=== PATIENT | female | born 1955 | race Caucasian/White ===

== ENCOUNTER 2024-05-15 04:29 | Emergency (ER) | payer MEDICARE, OTHER, SELFPAY ==
[2024-05-15] VITALS (8 sets, daily range): BP systolic 105–129; BP diastolic 68–76; BMI 29.3
[2024-05-15 04:57] LABS: % Basophils 0.4 % (0-2); % Eosinophils 2.6 % (0-6); % Immature Granulocytes 0.4 % (0-0.5); % Lymphocytes 19.8 % (20.5-51.1); % Monocytes 7.9 % (1.7-9.3); % Neutrophils 68.9 % (42.2-75.2); Absolute Eosinophils 0.2 10^3/uL (0-0.7); Absolute Lymphocytes 1.5 10^3/uL (1.2-3.4); Absolute Monocytes 0.6 10^3/uL (0.1-0.6); Absolute Neutrophils 5.1 10^3/uL (1.4-6.5); Hematocrit 37.7 % (37.0-47.0); Hemoglobin 12.5 g/dL (12.0-16.0); Mean Corp Hgb Conc. 33.2 g/dL (33.0-37.0); Mean Corpuscular Hgb 30.6 pg (27.0-31.0); Mean Corpuscular Volume 92.4 fL (81.0-99.0); Mean Platelet Volume 9.7 fL (7.4-10.4); Nucleated Red Blood Cells % 0 %; Platelet Count 262 10^3/uL (130-400); Red Blood Cell Count 4.08 10^6/uL (4.20-5.40); Red Cell Dist. Width 12.6 % (11.5-14.5); White Blood Cell Count 7.4 10^3/uL (4.8-10.8)
[2024-05-15 05:13] LABS: D-Dimer < 0.27 ug/mlFEU (0.00-0.50)
[2024-05-15 05:23] LABS: ALT (SGPT) 22 U/L (0-35); AST (SGOT) 23 U/L (14-36); Albumin 3.7 g/dl (3.5-5.0); Alkaline Phosphatase 101 U/L (38-126); Blood Urea Nitrogen 23 mg/dl (7-17); Carbon Dioxide 24 mmol/L (22-30); Chloride 106 mmol/L (98-107); Estimated Creatinine Clearance 64 ml/min; Glucose 94 mg/dl (70-99); Potassium 3.9 mmol/L (3.5-5.1); Sodium 138 mmol/L (135-145); Total Bilirubin 0.7 mg/dl (0.2-1.3); Total Protein 6.1 g/dl (6.3-8.2); eGFR > 60.00
[2024-05-15 05:27] LABS: Troponin I < 0.012 ng/ml
--- NOTE | 2024-05-15 05:48 | ED.GENMED ---
History of Present Illness
General
Chief Complaint: Chest Pain
Source: patient and family
Exam Limitations: none
Time Seen by Provider: 05/15/24 05:43
Nursing documentation reviewed up to this point in time: agreed with
History of Present Illness
History of Present Illness:
Pleasant 68-year-old female that presents to the emergency department with chest pain. This been present off-and-on for several days. Was just on a flight to call back last weekend and flew home on Saturday. She was having chest pain while she was
in call back. The pains persisted today while at work. 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 The pain resolved. She states that she did have some intermittent tingling over the last week
down her left arm. Denies fever, chills Ker, chest pain, or current shortness of breath.
Review of Systems
Review of Systems
Allergies reviewed?: Yes
All Other Systems: ROS reviewed and negative except as documented in HPI and ROS
Constitutional: Reports no symptoms
EENT: Reports no symptoms
Respiratory: Reports no symptoms
Cardiac: Reports chest pain
ABD/GI: Reports no symptoms
: Reports no symptoms
Musculoskeletal: Reports no symptoms
Skin: Reports no symptoms
Neurological: Reports no symptoms
Endocrine: Reports no symptoms
Hematologic/Lymphatic: Reports no symptoms
Psychiatric: Reports no symptoms
Phy Exam
General Physical Exam
General Presentation: well appearing and no apparent distress
General Skin: warm and dry
General Habitus: normal
General Mental: alert
General Hydration: appears well hydrated
ENT Exam
ENT Exam: EOMI, pharynx normal, neck supple and normocephalic
Eye Exam
Eye Exam: PERRL, cornea clear and conjunctiva normal
Cardiovascular Exam
Cardiovascular Exam: regular rate/rhythm, no edema, no murmur and normal peripheral pulses
Pulmonary Exam
Pulmonary Exam: lungs clear, no respiratory distress, no rales, no crackles, no rhonchi, no stridor, no wheezing and no cough
Gastrointestinal Exam
Gastrointestinal Exam: normal bowel sounds, non tender, soft, no organomegaly, no pulsatile mass and non distended
Neurological Exam
Neurological Exam: alert, oriented x3, no motor deficits and speech normal
Musculoskeletal Exam
Musculoskeletal Exam: full ROM and no edema
Skin Exam
Skin Exam: normal color, warm/dry, no rash and no petechia
Psychiatric Exam
Psychiatric Exam: normal mood/affect
Course
Orders/Labs/Results
Orders:
Orders
05/15/24 04:30
Electrocardiogram (*1) Urgent
Reason for Study: Chest Pain
05/15/24 04:52
Complete Blood Count/With Diff Urgent
Comprehensive Metabolic Panel Urgent
D-Dimer Urgent
Comment: .
Troponin I Urgent
05/15/24 05:43
CR Chest - 2 Views Urgent
Comment:
Reason For Exam: cp
Abnormal Lab Results
05/15/24
04:52
RBC 4.08 L 10^6/uL
(4.20-5.40)
Lymphocytes % 19.8 L %
(20.5-51.1)
BUN 23 H mg/dl
(7-17)
Total Protein 6.1 L g/dl
(6.3-8.2)
05/15/24 04:52
05/15/24 04:52
Vital Signs
Initial and Last Documented VS:
Initial Vital Signs
Temp Pulse Resp BP Pulse Ox
98.2 F 61 16 105/75 96
05/15/24 04:39 05/15/24 04:39 05/15/24 04:39 05/15/24 04:39 05/15/24 04:39
Last Documented Vital Signs
Temp Pulse Resp BP Pulse Ox
98.2 F 60 16 123/69 94
05/15/24 04:39 05/15/24 06:30 05/15/24 06:30 05/15/24 06:00 05/15/24 06:30
ED Attending Note
-
Portions of this chart may have been created with voice recognition software.� Occasional wrong word or��sound alike� substitutions may have occurred due to the inherent limitations of voice recognition software.
Discharge Plan
Departure
Condition: Good
Instructions: Chest Pain DCA Follow Up
Prescriptions:
No Action
levothyroxine 25 MCG tablet
25 mcg PO DAILY
escitalopram oxalate 20 MG tablet
20 mg PO DAILY
bupropion HCl 300 MG tablet extended release 24 hr
300 mg PO DAILY
metronidazole 500 MG tablet
500 mg PO TID Qty: 29 0RF
levofloxacin [Levaquin] 500 MG tablet
500 mg PO DAILY Qty: 9 0RF
Referrals:
Taya Foster PA-C [Family Provider] -
Activity Restrictions/Additional Instructions:
It was a pleasure meeting you and taking part in your care. We hope for your continued healing and wellness.
Please read discharge instructions in their entirety. However, they are for general education and may not describe your exact diagnosis at discharge. Information on your ER visit and medical conditions were discussed with you along with appropriate
follow up information...
If indicated, please take your medications as instructed and indicated on discharge paperwork.
Please schedule a follow up appointment as directed. Call to schedule an appointment
Please return to the emergency department with ANY change in, persisting, or worsening of symptoms. If any of your symptoms do not improve, or persist, or become more severe within 6-12 hours, please return to the emergency department for further
care.
Please return to the emergency department if you develop a headache, neck pain/stiffness, fever greater than 100.4F, chest pain, shortness of breath, persistent nausea, vomiting, slurred speech, difficulty walking, numbness/tingling, weakness, signs
of infection or any other symptoms that are worrisome to you.
If you have any questions or concerns please do not hesitate to call the Hospital at or E-mail me directly at [email or web address]
Interventions
Interventions:
*Risk Screen - Suicide Last Done: 05/15/24 04:33
*General Assessment Last Done: 05/15/24 04:50
*Neglect/Abuse Screening Last Done: 05/15/24 04:33
*ED COVID-19 Vaccine History Last Done: 05/15/24 04:33
ED- Cardiac Assessment Last Done: 05/15/24 04:54
Discharge Date and Time
Print Language: [id number]
[2024-05-15 07:47] LABS: Troponin I < 0.012 ng/ml
== END 2024-05-15 09:36 | disposition home or self-care (01) ==
LOC: EMR 04:29
PROVIDERS: EMERGENCY PHYSICIAN Student in an Organized Health Care Education/Training Program; FAMILY PHYSICIAN Physician Assistant Medical
DX: R07.89 Other chest pain (principal)
CPT/HCPCS: 99283; 71046; 80053; 84484; 85025; 85379; 93005

== ENCOUNTER → 2024-09-09 09:39 | Outpatient (REF) | payer MEDICARE, OTHER, SELFPAY ==
[2024-09-10 18:35] LABS: CA 125 < 5.5 U/mL (0-35)
== END ==
LOC: WDC 09:39
PROVIDERS: ATTENDING PHYSICIAN Physician Assistant Medical; OTHER PHYSICIAN Obstetrics & Gynecology
DX: E78.2 Mixed hyperlipidemia (principal); M85.80 Other specified disorders of bone density and structure, unspecified site; Z12.31 Encounter for screening mammogram for malignant neoplasm of breast; Z78.0 Asymptomatic menopausal state; R97.1 Elevated cancer antigen 125 [CA 125]
CPT/HCPCS: 36415; 75571; 76770; 77063; 77067; 77080; 86304